=== PATIENT | female | born 1930 | race Caucasian/White ===

== ENCOUNTER 2016-09-21 15:28 | Emergency (ER) | payer MEDICARE ==
[~2016-09-21] VITALS: Ht 154.9 cm; Wt 60.8 kg
[~2016-09-21 15:28] MED LIST: AMLO10TA2 PO; AMLO5TAB2 PO; ASPI81TA44 PO; BIMA2.5D OP; BRIM5DRO3 EACHEYE; CA C1TAB63 PO; CETI10CA PO; CIPR500T94 PO; DEXT350P PO; DIPH50CA59 PO; DORZ10DR7 OP; ESOM40CA PO; FLUT16SP NS; HYDR25TA9 PO; IPRA3AMP NEB; KETO5DRO3 EACHEYE; LORA10TA3 PO; LOSA100T6 PO; LOSA50TA6 PO; METO25TA4 PO; MULT-246 PO; NAPR220C4 PO; NAPR375T3 PO; PRAV20TA2 PO; PRED-220 PO; PRED20TA PO; SULF1TAB3 PO; TRAM50TA PO; VALS320T2 PO; VENTOLIN HFA18 GM INH; ZOLP10TA4 PO
--- NOTE | 2016-09-21 18:48 | PHYS DOC ---
Past Medical History Past Medical History: Anxiety, Asthma, COPD, Hypertension, Unknown Past Surgical History: Knee Replacement, Oophorectomy, Other Additional Past Surgical Histo: ovarian surgery, hernia repair Alcohol Use: None Drug Use: None Adult General Chief Complaint Chief Complaint: HYPERTENSION HPI HPI Patient is a 85 year old female who presents with her daughter for evaluation of high blood pressure and recent low sodium test. She has been anxious about changing medications due to low sodium and her blood pressure running in the 160s to 180s at home. She denies headache, vision changes, chest pain, dyspnea, palpitations, abdominal pain, nausea or vomiting, diarrhea, dysuria, numbness, tingling, weakness, dizziness, back pain. She states she had her blood retested yesterday at her primary care doctor's office, but she does not know this result yet. Review of Systems Review of Systems Constitutional: Denies fever or chills [] Eyes: Denies change in visual acuity, redness, or eye pain [] HENT: Denies nasal congestion or sore throat [] Respiratory: Denies cough or shortness of breath [] Cardiovascular: No additional information not addressed in HPI [] GI: Denies abdominal pain, nausea, vomiting, bloody stools or diarrhea [] : Denies dysuria or hematuria [] Musculoskeletal: Denies back pain or joint pain [] Integument: Denies rash or skin lesions [] Neurologic: Denies headache, focal weakness or sensory changes [] Endocrine: Denies polyuria or polydipsia [] Allergies Allergies Allergies Coded Allergies Type Severity Reaction Last Updated Verified Sulfa (Sulfonamide Antibiotics) Allergy Severe difficulty breathing 08/03/16 Yes Physical Exam Physical Exam Constitutional: Well developed, well nourished, no acute distress, non-toxic appearance. [] HENT: Normocephalic, atraumatic, bilateral external ears normal, oropharynx moist, nose normal. [] Eyes: PERRLA, EOMI. [] Neck: Normal range of motion, supple. [] Cardiovascular:Heart rate regular rhythm [] Lungs & Thorax: Bilateral breath sounds clear to auscultation [] Abdomen: Bowel sounds normal, soft, no tenderness. [] Skin: Warm, dry, no erythema, no rash. [] Back: Normal range of motion. [] Extremities: No tenderness, ROM intact, no edema. [] Neurologic: Alert and oriented X 3, normal motor function, normal sensory function, no focal deficits noted. [] Psychologic: Affect normal, judgement normal, mood normal. [] Current Patient Data Vital Signs Vital Signs Date Time Temp Pulse Resp B/P Pulse Ox O2 Delivery O2 Flow Rate FiO2 09/21/16 18:53 64 18 175/87 95 Room Air 09/21/16 17:35 97.9 97.9 Course & Med Decision Making Course & Med Decision Making Pertinent Labs and Imaging studies reviewed. (See chart for details) While waiting, she received a phone call from Dr. Lmabert' office stating that her sodium is improving. She would like to go home without any further testing. I had a long discussion about asymptomatic hypertension and the need for follow- up with primary care doctor's office. Return precautions given. She and daughter understand and agree with plan. Dragon Disclaimer Dragon Disclaimer This electronic medical record was generated, in whole or in part, using a voice recognition dictation system. Departure Departure Impression: Primary Impression: Asymptomatic hypertension Disposition: 01 HOME, SELF-CARE Condition: STABLE Referrals: NGOC LAMBERT MD (PCP) Patient Instructions: Hypertension, [id number] Additional Instructions: Follow-up with your primary care doctor. Return for any concerns. Roverto AN MD Sep 21, 2016 18:48
[2016-09-21 18:53] VITALS: BP 175/87
== END 2016-09-21 18:55 | disposition home or self-care (01) ==
LOC: ER 18:21
DX: I10 Essential (primary) hypertension (principal); J44.0 Chronic obstructive pulmonary disease with (acute) lower respiratory infection; J45.909 Unspecified asthma, uncomplicated; Z88.2 Allergy status to sulfonamides
CPT/HCPCS: 99283

== ENCOUNTER → 2016-11-26 | Outpatient (CLI) | payer MEDICARE ==
--- NOTE | 2016-11-26 09:55 | RAD ---
Chest, 2 views, 11/26/2016: History: Emphysema, chronic shortness of breath Comparison is made to a study from 09/11/2016. The heart is at the upper limits of normal in size. There is calcific plaquing of the aorta. There is calcific plaquing of the aorta. Blunting of the costophrenic angles has developed, left greater than right compatible with a small amount of pleural fluid. There is mild underlying streaky left basilar atelectasis/infiltrate. Opacities projected over the anterior aspect of the heart on lateral view are unchanged and are probably due to scarring. The upper lung jimenez are clear. The bony structures are demineralized. IMPRESSION: 1. Borderline cardiomegaly and aortic atherosclerosis. 2. A small left pleural effusion has developed with mild left basilar atelectasis/infiltrate. 3. Tiny right pleural effusion
== END | disposition home or self-care (01) ==
LOC: RAD 09:27
PROVIDERS: ATTEND Internal Medicine Pulmonary Disease
DX: R06.02 Shortness of breath (principal); J90 Pleural effusion, not elsewhere classified; J43.9 Emphysema, unspecified; I70.0 Atherosclerosis of aorta
CPT/HCPCS: 71020

== ENCOUNTER 2017-10-22 15:20 | Inpatient (IN) | payer MEDICARE ==
[2017-10-22 16:01] LABS: ADD MAN DIFF? YES; BASO % 0 % (0-3); EOS # 0.1 x10^3/uL (0.0-0.7); EOS % 1 % (0-3); HEMATOCRIT 50.3 % (36.0-47.0); HEMOGLOBIN 16.6 g/dL (12.0-15.5); LYMPH # 0.3 x10^3/uL (1.0-4.8); LYMPH % 3 % (24-48); MEAN CORPUSCULAR HEMOGLOBIN 30 pg (25-35); MEAN CORPUSCULAR HGB CONC 33 g/dL (31-37); MEAN CORPUSCULAR VOLUME 92 fL (79-100); MONO % 9 % (0-9); NEUT # 9.8 x10^3uL (1.8-7.7); NEUT % 87 % (31-73); PLATELET COUNT 280 x10^3/uL (140-400); RED BLOOD COUNT 5.47 x10^6/uL (3.50-5.40); RED CELL DISTRIBUTION WIDTH 13.3 % (11.5-14.5); WHITE BLOOD COUNT 11.2 x10^3/uL (4.0-11.0)
[2017-10-22 16:12] LABS: ANION GAP 8 (6-14); BLOOD UREA NITROGEN 14 mg/dL (7-20); BUN/CREATININE RATIO 28 (6-20); CALCIUM 10.2 mg/dL (8.5-10.1); CARBON DIOXIDE 31 mmol/L (21-32); CHLORIDE 102 mmol/L (98-107); CREATININE 0.5 mg/dL (0.6-1.0); GLUCOSE 111 mg/dL (70-99); POTASSIUM 4.1 mmol/L (3.5-5.1); SODIUM 141 mmol/L (136-145)
[2017-10-22 16:20] LABS: TROPONINI < 0.017 ng/mL (0.000-0.055)
[2017-10-22 16:27] LABS: ALBUMIN 3.7 g/dL (3.4-5.0); ALK PHOS 95 U/L (46-116); ALT (SGPT) 69 U/L (14-59); AST (SGOT) 36 U/L (15-37); TOTAL BILIRUBIN 0.3 mg/dL (0.2-1.0); TOTAL PROTEIN 7.4 g/dL (6.4-8.2)
[2017-10-22 16:29] LABS: BILIRUBIN,URINE NEGATIVE (NEG); CLARITY,URINE CLEAR; GLUCOSE,URINE NEGATIVE (NEG); NITRITE,URINE NEGATIVE (NEG); PH,URINE 6.5; PROTEIN,URINE NEGATIVE (NEG-TRACE); UROBILINOGEN,URINE 0.2 mg/dL (0.2 mg/dL)
[2017-10-22 16:40] LABS: BACTERIA,URINE FEW /HPF (0-FEW); COLOR,URINE STRAW; RBC,URINE 0 /HPF (0-2); SQUAMOUS EPITHELIAL CELL,UR FEW /LPF
[2017-10-22] MEDS: IOHEXOL 300 MG/ML 100ML VIAL. IV (16:41)
[2017-10-22 16:45] LABS: % BANDS 13 % (0-9); % LYMPHS 4 % (24-48); % MONOS 7 % (0-10); % SEGS 76 % (35-66)
[2017-10-22] MEDS ORDERED: CONTRAST GIVEN MC (16:45)
[2017-10-22 16:47] LABS: PLT ESTIMATE ADEQUATE (ADEQUATE); TOXIC GRANULATION SLIGHT
[2017-10-22 16:52] LABS: INFLUENZA A PATIENT POSITIVE (NEGATIVE); INFLUENZA B PATIENT NEGATIVE (NEGATIVE); OBC FLU VALID
[2017-10-22] MEDS ORDERED: fentaNYL PF VIAL 100 MCG/2 ML VIAL IV (17:15)
[2017-10-22] MEDS ORDERED: ACETAMINOPHEN 325 MG TABLET. PO (17:15)
[2017-10-22] MEDS ORDERED: ONDANSETRON PF 4 MG/2 ML VIAL. IV ×2 (17:15→18:45)
[2017-10-22] MEDS: OSELTAMIVIR 75 MG CAPSULE PO (17:15)
[2017-10-22] MEDS: IV NORMAL SALINE 1000ML BAG 1,000 ML IV ×2 (17:24→18:45)
[2017-10-22] MEDS ORDERED: guaiFENesin DM 200MG/20MG 10 ML SYRUP PO (18:45)
[2017-10-22] MEDS ORDERED: traMADol 50 MG TABLET PO (18:45)
[2017-10-22] MEDS ORDERED: cloNIDine HCL 0.1 MG TABLET PO (18:45)
[2017-10-22] MEDS ORDERED: NAPROXEN 250 MG TABLET PO (18:45)
[2017-10-22] MEDS ORDERED: IPRATRPIUM/ALBUTEROL 0.5/2.5MG 3 ML NEBU. NEB (20:00)
[2017-10-22 20:01] LABS: LACTIC ACID 0.9 mmol/L (0.4-2.0)
[2017-10-22 20:05] LABS: TROPONINI < 0.017 ng/mL (0.000-0.055)
[2017-10-22] MEDS: ATORVASTATIN CALCIUM 10 MG TABLET. PO (20:48)
[2017-10-22] MEDS: FAMOTIDINE 20 MG TABLET. PO (20:49)
[2017-10-22] MEDS: BRIMONIDINE 0.2% OPHTH SOLUTION 5ML BOTTLE. OU (20:50)
[2017-10-22] MEDS: DORZOLAMIDE 2% OPHTH SOLUTION 10ML BOTTLE. OU (20:50)
[2017-10-22] MEDS: POLYVINYL ALCOHOL 1.4% OPHTH SOLUTION 15ML BOTTLE. OU (20:51)
[2017-10-22] MEDS: TIMOLOL 0.25% OPHTH SOLUTION 5ML BOTTLE. OU ×2 (20:52→21:00)
[2017-10-23 03:33] LABS: ADD MAN DIFF? NO
[2017-10-23 03:39] LABS: BASO % 0 % (0-3); EOS % 0 % (0-3); HEMATOCRIT 44.8 % (36.0-47.0); HEMOGLOBIN 14.8 g/dL (12.0-15.5); LYMPH # 0.6 x10^3/uL (1.0-4.8); LYMPH % 7 % (24-48); MEAN CORPUSCULAR HEMOGLOBIN 30 pg (25-35); MEAN CORPUSCULAR HGB CONC 33 g/dL (31-37); MEAN CORPUSCULAR VOLUME 92 fL (79-100); MONO # 1.3 x10^3/uL (0.0-1.1); MONO % 15 % (0-9); NEUT # 7.1 x10^3uL (1.8-7.7); NEUT % 78 % (31-73); PLATELET COUNT 232 x10^3/uL (140-400); RED BLOOD COUNT 4.88 x10^6/uL (3.50-5.40); RED CELL DISTRIBUTION WIDTH 13.4 % (11.5-14.5); WHITE BLOOD COUNT 9.1 x10^3/uL (4.0-11.0)
[2017-10-23 03:51] LABS: ANION GAP 8 (6-14); BLOOD UREA NITROGEN 14 mg/dL (7-20); CALCIUM 9.4 mg/dL (8.5-10.1); CARBON DIOXIDE 29 mmol/L (21-32); CHLORIDE 102 mmol/L (98-107); CREATININE 0.5 mg/dL (0.6-1.0); GLUCOSE 103 mg/dL (70-99); POTASSIUM 3.8 mmol/L (3.5-5.1); SODIUM 139 mmol/L (136-145)
[2017-10-23] MEDS: ALBUTEROL SULFATE 2.5 MG/3 ML NEBU. NEB ×2 (07:16→11:31)
[2017-10-23] MEDS ORDERED: FLUTICASONE 50MCG/NASAL SPRAY 16GM BOTTLE. NS (09:00)
[2017-10-23] MEDS ORDERED: OSELTAMIVIR 75 MG CAPSULE PO (09:00)
[2017-10-23] MEDS: TIMOLOL 0.25% OPHTH SOLUTION 5ML BOTTLE. OU (09:00)
[2017-10-23] MEDS: LOSARTAN POTASSIUM 50 MG TABLET. PO (09:52)
[2017-10-23] MEDS: OMEGA-3 FATTY ACIDS/FISH OIL 1,000 MG CAPSULE. PO (09:52)
[2017-10-23] MEDS: OSELTAMIVIR 30 MG CAPSULE PO (09:52)
[2017-10-23] MEDS: CHOLECALCIFEROL (VITAMIN D3) 1,000 UNIT TABLET PO (09:52)
[2017-10-23] MEDS: predniSONE 10 MG TABLET PO (09:52)
[2017-10-23] MEDS: METOPROLOL SUCC 24HR ER 50 MG TAB.ER.24H. PO (09:53)
[2017-10-23] MEDS: POLYVINYL ALCOHOL 1.4% OPHTH SOLUTION 15ML BOTTLE. OU (09:54)
[2017-10-23] MEDS: BRIMONIDINE 0.2% OPHTH SOLUTION 5ML BOTTLE. OU (09:55)
[2017-10-23] MEDS: DORZOLAMIDE 2% OPHTH SOLUTION 10ML BOTTLE. OU (09:55)
[2017-10-24] MEDS ORDERED: predniSONE 5 MG TABLET PO (09:00)
[2017-10-25] MEDS ORDERED: predniSONE 5 MG TABLET PO (09:00)
== END 2017-10-23 15:30 | disposition home health service (06) | DRG 193 ==
LOC: ER 15:20 → ED HOLD 17:03 → 5 SOUTH 19:57
DX: J10.1 Influenza due to other identified influenza virus with other respiratory manifestations (principal); J96.91 Respiratory failure, unspecified with hypoxia; J43.9 Emphysema, unspecified; I10 Essential (primary) hypertension; K21.9 Gastro-esophageal reflux disease without esophagitis; F41.9 Anxiety disorder, unspecified; Z96.659 Presence of unspecified artificial knee joint; Z77.22 Contact with and (suspected) exposure to environmental tobacco smoke (acute) (chronic); Z79.899 Other long term (current) drug therapy; Z82.49 Family history of ischemic heart disease and other diseases of the circulatory system; Z88.2 Allergy status to sulfonamides; Z90.710 Acquired absence of both cervix and uterus; Z91.81 History of falling; Z90.721 Acquired absence of ovaries, unilateral
CPT/HCPCS: 36415; 71045; 71275; 80048; 80053; 81001; 83605; 84484; 85007; 85025; 87040; 87086; 87804; 87804-59; 93005; 94618; 94640; 94760; 96360; 97161-GP; 97165-GO; 99285; 99285-25; J7030; J7512; J7613; Q9967

== ENCOUNTER → 2019-06-11 | Day surgery (SDC) | payer MEDICARE ==
[~2019-06-11] MED LIST changes: -AMLO10TA2 PO; +AMLO10TA8 PO; +AMLO5TAB10 PO; -AMLO5TAB2 PO; -ASPI81TA44 PO; +ASPI81TA59 PO; +BUDE10.2 IH; +CETI10TA22 PO; +CHOL10003 PO; +FAMO20TA5 PO; +FAMO40TA4 PO; +HYDR-2145 PO; -HYDR25TA9 PO; -IPRA3AMP NEB; +IPRA3AMP29 NEB; +IV RINGERS,LACTATED 1000ML 1,000 ML IV ONE; -KETO5DRO3 EACHEYE; +KETO5DRO4 EACHEYE; +LIDOCAINE 2% PF 5 ML VIAL. ONE; +LOSA-73 PO; +LOSA100T14 PO; -LOSA100T6 PO; -LOSA50TA6 PO; +METO50TA6 PO; +NAPR-695 PO; -NAPR375T3 PO; +OMEG-165 PO; +OSEL30CA PO; +PRED2.5T PO; +PROP15DR EACHEYE; +PROPOFOL 20 ML IV ONE; +SPIR25TA5 PO; +SULF-143 PO; -SULF1TAB3 PO
[2019-06-11 13:00] VITALS: BP 168/72
--- NOTE | 2019-06-12 14:06 | PATHOLOGY ---
[facility] Accession Number: [id number] . 01 Material submitted: . esophagus - DISTAL ESOPHAGEAL BX. Modifiers: distal . 01 Clinical history: . Pre-OP DX: Dysphagia, abdominal pain, poor appetite Post-OP DX: Rule out lilian . 02 Diagnosis: Esophageal biopsies, distal esophagus: - Lilian esophagitis. (JPM:jose daniel; 06/12/2019) QMS 06/12/2019 0919 Local . 02 Comment: Sections of the distal esophageal biopsy reveal segments of tangentially oriented, hyperplastic squamous esophageal mucosa. There are focal intraepithelial neutrophils. A PAS stain for yeast/fungi focally reveals the presence of yeast and pseudohyphae within epithelial cells. The finding is supportive of the diagnosis of Lilian esophagitis. There is no evidence of Can's change, dysplasia, or malignancy. (JPM:jose daniel;06/12/2019) . . Special stain performed: PAS for yeast/fungus . 02 Electronically signed: . Israel Melara MD, Pathologist NPI- [id number] . 01 Gross description: . Received in formalin labeled "Bertha Yang, distal esophageal BX," are multiple segments of rowland soft tissue measuring 1.3 x 0.3 x 0.1 cm in aggregate dimensions. The specimen is filtered and entirely submitted in cassette A1. (TSD; 06/11/2019) TOB/TOB 06/11/2019 1746 Local . 02 Pathologist provided ICD-10: B37.81 . 02 CPT . 006036, 018789 Specimen Comment: A courtesy copy of this report has been sent to Specimen Comment: [phone], . Specimen Comment: Report sent to / DR LAMBERT Performed at: 01 [facility] [place] [id number] [facility] [address], [place], [place] [id number] MD Cornelius Guzman MD Phone: [phone] Performed at: 02 [facility] [address] [place] [id number] MD Israel Melara MD Phone: [phone]
== END ==
LOC: ENDOS 10:57
PROVIDERS: ATTEND Internal Medicine Gastroenterology
DX: R13.10 Dysphagia, unspecified (principal); K21.0 Gastro-esophageal reflux disease with esophagitis; K22.2 Esophageal obstruction; K29.50 Unspecified chronic gastritis without bleeding; B37.81 Candidal esophagitis; K44.9 Diaphragmatic hernia without obstruction or gangrene; F32.9 Major depressive disorder, single episode, unspecified; J43.9 Emphysema, unspecified; E78.00 Pure hypercholesterolemia, unspecified; F15.90 Other stimulant use, unspecified, uncomplicated; Z87.39 Personal history of other diseases of the musculoskeletal system and connective tissue; Z72.89 Other problems related to lifestyle; Z98.890 Other specified postprocedural states; Z98.51 Tubal ligation status; Z96.60 Presence of unspecified orthopedic joint implant
CPT/HCPCS: 43239; 43450; J2001; J2704

== ENCOUNTER → 2019-07-09 | Outpatient (CLI) | payer MEDICARE ==
[2019-06-11 13:00] VITALS: BP 168/72
[~2019-07-09] MED LIST changes: +HYDR-2868 PO; -IV RINGERS,LACTATED 1000ML 1,000 ML IV ONE; -LIDOCAINE 2% PF 5 ML VIAL. ONE; -PROPOFOL 20 ML IV ONE
[2019-07-09] MEDS: ALBUTEROL SULFATE 2.5 MG/3 ML NEBU. NEB ONE (13:41)
--- NOTE | 2019-07-14 15:07 | RESP ---
DATE OF SERVICE: 07/09/2019 SPIROMETRY STUDY REFERRING PHYSICIAN: Jessica Porter MD The patient's FVC was 1.35, which is 62% predicted, FEV1 1.80, which is 50% predicted. The FEV1/FVC ratio was reduced. There was no response to bronchodilators. IMPRESSION: 1. Severe obstructive airway disease. 2. No response to bronchodilators. LINDSAY CLAYTON MD DR: JACKI/troy JOB#: [id number] / [id number] JESSICA Singer MD
== END | disposition home or self-care (01) ==
LOC: PF 12:45
PROVIDERS: ATTEND Internal Medicine Pulmonary Disease
DX: J98.8 Other specified respiratory disorders (principal)
CPT/HCPCS: 94060; 94640; J7613

== ENCOUNTER 2019-08-23 13:39 | Emergency (ER) | payer MEDICARE ==
[~2019-08-23] VITALS: Ht 154.9 cm; Wt 62.6 kg
[2019-08-23] MEDS ORDERED: PRED50TA PO (14:44)
[2019-08-23] MEDS ORDERED: TRAM50TA PO (14:44)
[2019-08-23] MEDS ORDERED: ACYC800T PO (14:44)
[2019-08-23] MEDS ORDERED: TRAM-48 PO (14:47)
--- NOTE | 2019-08-23 14:48 | PHYS DOC ---
Past Medical History Past Medical History: Anxiety, Asthma, COPD, Hypertension, Unknown Additional Past Medical Histor: EMPHYSEMA, HIATAL HERNIA, GLAUCOMA Past Surgical History: Knee Replacement, Oophorectomy, Other Additional Past Surgical Histo: ovarian surgery, hernia repair, GLAUCOMA IMPLANT Alcohol Use: None Drug Use: None Adult General Chief Complaint Chief Complaint: SKIN RASH/ABSCESS HPI HPI Patient is a 88 year old female who presents with a painful rash that began 2 days ago. Patient denies any fever. Review of Systems Review of Systems Constitutional: Denies fever or chills [] : Denies dysuria or hematuria [] Musculoskeletal: Denies back pain or joint pain [] Integument: Reports rash Neurologic: Denies headache, focal weakness or sensory changes [] All other systems were reviewed and found to be within normal limits, except as documented in this note. Allergies Allergies Allergies Coded Allergies Type Severity Reaction Last Updated Verified Sulfa (Sulfonamide Antibiotics) Allergy Severe difficulty breathing 06/11/19 Yes Physical Exam Physical Exam Constitutional: Well developed, well nourished, no acute distress, non-toxic appearance. [] Skin: Left flank region and mid chest with a rash consistent of shingles. Back: No tenderness, no CVA tenderness. [] Extremities: No tenderness, no cyanosis, no clubbing, ROM intact, no edema. [] Neurologic: Alert and oriented X 3, normal motor function, normal sensory function, no focal deficits noted. [] Psychologic: Affect normal, judgement normal, mood normal. [] EKG EKG [] Radiology/Procedures Radiology/Procedures [] Course & Med Decision Making Course & Med Decision Making Pertinent Labs and Imaging studies reviewed. (See chart for details) This is a 88-year-old female patient with shingles. Discharged with acyclovir, prednisone, and tramadol. Follow-up with PCP in 1-2 weeks Dragon Disclaimer Dragon Disclaimer This electronic medical record was generated, in whole or in part, using a voice recognition dictation system. Departure Departure Impression: Primary Impression: Shingles Disposition: 01 HOME, SELF-CARE Condition: STABLE Referrals: NGOC LAMBERT MD (PCP) follow up in 1-2 weeks Patient Instructions: Shingles, [id number] Additional Instructions: You were evaluated in the department and noted to have shingles. Take the prescribed medications as ordered. Follow-up with your doctor in 1-2 weeks. Scripts Tramadol Hcl (ULTRAM) 50 Mg Tablet 1 TAB PO PRN Q6HRS PRN for pain MDD 4 Tablet(s) for 7 Days, #28 TAB 0 Refills Prov: CLARIBEL KIDD APRN 08/23/19 Acyclovir (ACYCLOVIR) 800 Mg Tablet 1 TAB PO 5XDAY, #50 TAB Prov: CLARIBEL KIDD APRN 08/23/19 Prednisone (PREDNISONE) 50 Mg Tablet 1 TAB PO DAILY, #5 TAB Prov: CLARIBEL KIDD APRN 08/23/19 Problem Qualifiers Primary Impression: Shingles Herpes zoster complications: without complications Qualified Codes: B02.9 - Zoster without complications CLARIBEL KIDD APRN Aug 23, 2019 14:48
[2019-08-23 14:58] VITALS: BP 152/72
== END 2019-08-23 14:59 | disposition home or self-care (01) ==
LOC: ER 13:39
DX: B02.9 Zoster without complications (principal); J44.9 Chronic obstructive pulmonary disease, unspecified; I10 Essential (primary) hypertension; Z88.2 Allergy status to sulfonamides
CPT/HCPCS: 99283